=== PATIENT | male | born 1980 | race African-American/Black ===

== ENCOUNTER 2018-05-26 09:55 | Emergency (ER) | payer OTHER ==
[~2018-05-26] VITALS: Ht 180.3 cm; Wt 83.9 kg
[2018-05-26 10:19] LABS: ABSOLUTE NEUTROPHILS 6.7 thou/uL (1.4-8.2); BASOPHILS 0.7 % (0.0-2.0); EOSINOPHILS 0.5 % (0.0-3.0); HEMATOCRIT 51.2 % (42.0-52.0); HEMOGLOBIN 17.5 gm/dL (14.0-18.0); LYMPHOCYTES 18.3 % (24.0-44.0); MCH 29.3 pg (26.0-34.0); MCHC 34.3 g/dL (28.0-37.0); MCV 85.5 fL (80.0-100.0); MONOCYTES 6.9 % (1.0-8.0); PLATELET COUNT 190 thou/uL (150-400); POLYS 73.6 % (36.0-66.0); RBC 5.99 mil/uL (4.50-6.00); RDW 13.5 % (10.5-14.5); WBC 9.1 thou/uL (4.0-11.0)
[2018-05-26 10:29] LABS: CALCIUM 9.3 mg/dL (8.5-10.1); CREATININE 1.2 mg/dL (0.7-1.3); POTASSIUM 3.9 mmol/L (3.5-5.1)
[2018-05-26] MEDS ORDERED: NORCO 5-325 TA1 EACH PO (14:10)
[2018-05-26] MEDS ORDERED: IBUPROFEN 600600 M1 PO (14:10)
[2018-05-26] MEDS ORDERED: SENNA-DOCUSATE1 EAC1 PO (14:10)
[2018-05-26] MEDS ORDERED: KEFLEX500 M1 PO (14:10)
[2018-05-26] MEDS ORDERED: FLEXERIL PO (14:10)
[2018-05-26] MEDS ORDERED: NEOSPORIN + P28.3 GM TOP (14:10)
[2018-05-26 14:14] VITALS: BP 148/93
== END 2018-05-26 14:36 | disposition home or self-care (01) ==
LOC: ER 09:55
PROVIDERS: Emergency Medicine
DX: S01.80XA Unspecified open wound of other part of head, initial encounter (principal); V89.2XXA Person injured in unspecified motor-vehicle accident, traffic, initial encounter; Y93.89 Activity, other specified; Y92.410 Unspecified street and highway as the place of occurrence of the external cause; Y99.8 Other external cause status